=== PATIENT | female | born 1930 | race Caucasian/White ===

== ENCOUNTER 2017-06-26 17:25 | Emergency (ER) | payer OTHER ==
[~2017-06-26] VITALS: Ht 142.2 cm; Wt 60.3 kg
[2017-06-26 17:37] VITALS: BP_SYST 156
--- NOTE | 2017-06-26 18:28 | NUR ---
Patient to ER bed 08 to gown for evaluation. Side rails up. will assume care
--- NOTE | 2017-06-26 18:35 | NUR ---
Patient brought in with daughter and grand daughter in wheelchair complaining of left ankle pain since Sunday. Patient states that she does not know how she injured it. Grand daughter reports that patient ambulates on a daily basis and not like her to be in bed all day. Patient denies any pain, Patient has pain on palpation and swelling noted to left ankle. No other complaints/injuries per patient or as noted. Will continue to monitor.
--- NOTE | 2017-06-26 18:40 | NUR ---
ER Dr. Chatterjee at bedside examining patient.
--- NOTE | 2017-06-26 18:56 | NUR ---
radiology at bedside
[2017-06-26 19:33] VITALS: BP_SYST 148
--- NOTE | 2017-06-26 19:33 | NUR ---
Patient given written and verbal discharge instructions and verbalizes understanding. ER MD discussed with patient the results and treatment provided. Patient in stable condition. ID arm band removed. No Rx given. Patient educated on pain management and to follow up with PMD in 2-3 days. Pain Scale 0/10 Opportunity for questions provided and answered.
== END 2017-06-26 19:33 | disposition home or self-care (01) ==
LOC: SED 17:25
DX: S93.402A Sprain of unspecified ligament of left ankle, initial encounter (principal); Z90.710 Acquired absence of both cervix and uterus; R03.0 Elevated blood-pressure reading, without diagnosis of hypertension; X58.XXXA Exposure to other specified factors, initial encounter; Y93.89 Activity, other specified; Y92.89 Other specified places as the place of occurrence of the external cause; Y99.8 Other external cause status
CPT/HCPCS: 93971; 99284